=== PATIENT | female | born 1945 | race Caucasian/White ===

== ENCOUNTER 2018-02-24 09:06 | Emergency (ER) | payer MEDICARE, OTHER ==
--- NOTE | 2018-02-24 09:38 | ER Document Report ---
ED Eye Complaint - General Chief Complaint: Eye Problem Stated Complaint: EYE PROBLEM Time Seen by Provider: 02/24/18 09:35 Notes: Patient says that she is seeing "webs", floaters, and light flashes in her eyes. Patient began to have the symptoms last night while driving. She went back home and the symptoms continued. She says the webs are located in both eyes and the light flashes are just in her right eye. She has never had these problems before. Denies any eye pain. Has a history of cataracts and sees Dr. Yohana Tapia, local simulation technician. TRAVEL OUTSIDE OF THE [place] IN LAST 30 DAYS: No - Related Data Allergies/Adverse Reactions: Sulfa (Sulfonamide Antibiotics) Allergy (Verified 02/24/18 09:07) IVP DYE Allergy (Uncoded 02/24/18 09:07) Past Medical History - Social History Smoking Status: Never Smoker Frequency of alcohol use: None Drug Abuse: None Family History: Reviewed & Not Pertinent Patient has suicidal ideation: No Patient has homicidal ideation: No Renal/ Medical History: Denies: Hx Peritoneal Dialysis Past Surgical History: Reports: Hx Appendectomy Physical Exam - Vital signs Vitals: Temp Pulse Resp BP Pulse Ox 97.4 F 73 16 158/85 H 96 02/24/18 09:11 02/24/18 09:11 02/24/18 09:11 02/24/18 09:11 02/24/18 09:11 Course - Vital Signs Vital signs: Temp Pulse Resp BP Pulse Ox 97.7 F 73 19 160/88 H 94 02/24/18 11:54 02/24/18 09:11 02/24/18 11:55 02/24/18 11:55 02/24/18 11:55 - Laboratory Result Diagrams: 02/24/18 10:42 02/24/18 10:42 Discharge - Discharge Clinical Impression: Eye abnormalities Condition: Good Disposition: HOME, SELF-CARE Additional Instructions: Come back immediately with any worsening eye complaints, blurry vision, headache , weakness or numbness, increased flashes of light, or any other acute problems. The simulation technician office states that they would like to see you tomorrow morning at 8 AM.
--- NOTE | 2018-02-24 10:06 | RADIOLOGY REPORT (SQ) ---
EXAM DESCRIPTION: CT HEAD WITHOUT COMPLETED DATE/TIME: 02/24/2018 9:56 am REASON FOR STUDY: Visual changes, flashing lights, webs. COMPARISON: None. TECHNIQUE: Axial images acquired through the brain without intravenous contrast. Images reviewed wi th bone, brain and subdural windows. Additional sagittal and coronal reconstructions were generated. Images stored on PACS. All CT scanners at this facility use dose modulation, iterative reconstruction, and/or weight based d osing when appropriate to reduce radiation dose to as low as reasonably achievable (ALARA). [facility]: Dose Right [facility]: CareDose [facility]: Dose Right [facility]: Teradose 4D [facility]: Active DSP RADIATION DOSE: CT Rad equipment meets quality standard of care and radiation dose reduction techniq ues were employed. CTDIvol: 53.2 mGy. DLP: 911 mGy-cm. mGy. LIMITATIONS: None. FINDINGS: VENTRICLES: Normal size and contour. CEREBRUM: No masses. No hemorrhage. No midline shift. No evidence for acute infarction. Normal gra y/white matter differentiation. No areas of low density in the white matter. CEREBELLUM: No masses. No hemorrhage. No alteration of density. No evidence for acute infarction. EXTRAAXIAL SPACES: No fluid collections. No masses. ORBITS AND GLOBE: No intra- or extraconal masses. Normal contour of globe without masses. CALVARIUM: No fracture. PARANASAL SINUSES: No fluid or mucosal thickening. SOFT TISSUES: No mass or hematoma. OTHER: No other significant finding. IMPRESSION: NORMAL BRAIN CT WITHOUT CONTRAST. EVIDENCE OF ACUTE STROKE: NO. COMMENT: Quality ID # [id number]: Final reports with documentation of one or more dose reduction techniques (e.g., Automated exposure control, adjustment of the mA and/or kV according to patient size, use of iterative reconstruction technique) TECHNICAL DOCUMENTATION: JOB ID: [id number] [employer]- All Rights Reserved Reading location - IP/workstation name: [email or web address]
--- NOTE | 2018-02-24 10:30 | ER Document Report ---
ED Eye Complaint - General Chief Complaint: Eye Problem Stated Complaint: EYE PROBLEM Time Seen by Provider: 02/24/18 09:35 Information source: Patient Notes: Patient is a 72-year-old female who presents today stating yesterday she started to have some flashes of light to the right corner of her eye. She denies any headache, weakness or numbness, neck pain, blurry or double vision. Patient states that it has improved currently but she still had some mild flashes this morning. TRAVEL OUTSIDE OF THE [place] IN LAST 30 DAYS: No - HPI Onset: Other - See above Eye location: Right Injury: No Occurred at: Outdoors Quality of pain: No pain Severity: Mild Pain Level: Denies Safety glasses worn: No Contact lenses worn: No Associated symptoms: Other - See above - Related Data Allergies/Adverse Reactions: Sulfa (Sulfonamide Antibiotics) Allergy (Verified 02/24/18 09:07) IVP DYE Allergy (Uncoded 02/24/18 09:07) Past Medical History - General Information source: Patient - Social History Smoking Status: Never Smoker Cigarette use (# per day): No Chew tobacco use (# tins/day): No Smoking Education Provided: No Frequency of alcohol use: None Drug Abuse: None Family History: Reviewed & Not Pertinent Patient has suicidal ideation: No Patient has homicidal ideation: No Renal/ Medical History: Denies: Hx Peritoneal Dialysis Past Surgical History: Reports: Hx Appendectomy Review of Systems - Review of Systems Constitutional: denies: Fever EENT: denies: Eye discharge, Blurred vision, Double vision, Nose pain, Nose congestion, Nose discharge Cardiovascular: denies: Chest pain, Palpitations Musculoskeletal: denies: Leg swelling Skin: denies: Rash Neurological/Psychological: Other - no slurred speech. denies: Confusion, Weakness, Gait changes, Loss of power, Lost consciousness, Speech impairment, Numbness, Tingling -: Yes All other systems reviewed and negative Physical Exam - Vital signs Vitals: Temp Pulse Resp BP Pulse Ox 97.4 F 73 16 158/85 H 96 02/24/18 09:11 02/24/18 09:11 02/24/18 09:11 02/24/18 09:11 02/24/18 09:11 Notes: Reviewed vital signs and nursing note as charted by RN. CONSTITUTIONAL: Alert and oriented and responds appropriately to questions. Well -appearing; well-nourished HEAD: Normocephalic; atraumatic EYES: PERRL; full painless extraocular range of motion; patient has possibly a very minimal field deficit to the right lower lateral quadrant ENT: Normal nose; no rhinorrhea; moist mucous membranes; pharynx without lesions noted NECK: Supple without meningismus; non-tender; no carotid bruit; no cervical lymphadenopathy, no masses CARD: Regular rate and rhythm; no murmurs RESP: Normal chest excursion without splinting or tachypnea; breath sounds clear and equal bilaterally BACK: The back appears normal and is non-tender to palpation, there is no CVA tenderness EXT: Normal ROM in all joints; non-tender to palpation; no cyanosis, no effusions, no edema SKIN: No acute lesions noted NEURO: CN II through XII are intact. Patient has 5 out of 5 bilateral upper and lower extremity strength with sensation intact and cerebellar functioning normal PSYCH: The patient's mood and manner are appropriate. Grooming and personal hygiene are appropriate. - HEENT Visual acuity- Right eye: 20/25 Visual acuity- Left eye: 20/50 Visual acuity- Both eyes: 20/25 Corrective lenses worn: Yes - eyeglasses worn. Pt has cataract in left eye Course - Re-evaluation Re-evalutation: 02/24/18 10:28 Given the above history and physical examination I will order a CT scan of the head, EKG, and perform a visual acuity scan. Imaging and labs with an EKG is recorded. No change in examination. I have called and spoken to the food production manager Dr. Weiss. I have explained the full history and physical examination. Patient sees Dr. Garnica at this practice. He does not believe any acute intervention is required at this time. He has taken the patient's name and phone number and states that they will expedite follow-up tomorrow morning in the office. He has explained to have the patient return immediately with any worsening symptomatology. Patient and are pleased with this plan. Patient still has no focal neurological deficits. 02/24/18 11:29 No change in exam. Labs as recorded. Troponin is pending. CT scan of the head shows no acute abnormalities. - Vital Signs Vital signs: Temp Pulse Resp BP Pulse Ox 97.4 F 73 17 174/89 H 97 02/24/18 09:11 02/24/18 09:11 02/24/18 10:36 02/24/18 10:36 02/24/18 10:36 - Laboratory Result Diagrams: 02/24/18 10:42 02/24/18 10:42 Discharge - Discharge Clinical Impression: Eye abnormalities Condition: Good Disposition: HOME, SELF-CARE Additional Instructions: Come back immediately with any worsening eye complaints, blurry vision, headache , weakness or numbness, increased flashes of light, or any other acute problems. The food production manager office states that they would like to see you tomorrow morning at 8 AM.
[2018-02-24 11:07] LABS: ABSOLUTE EOSINOPHILS # (AUTO) 0.1 10^3/uL (0.0-0.6); ABSOLUTE LYMPHOCYTES (AUTO) 1.4 10^3/uL (0.5-4.7); ABSOLUTE MONOCYTES (AUTO) 0.6 10^3/uL (0.1-1.4); ABSOLUTE NEUT (AUTO) 3.7 10^3/uL (1.7-8.2); BASOPHILS % (AUTO) 0.3 % (0-2); EOSINOPHILS % (AUTO) 1.4 % (0-6); HEMOGLOBIN 13.7 g/dL (12.0-15.5); LYMPHOCYTES % (AUTO) 24.2 % (13-45); MEAN CORPUSCULAR HEMOGLOBIN 30.8 pg (27.0-33.4); MEAN CORPUSCULAR HGB CONC 33.4 g/dL (32.0-36.0); MEAN CORPUSCULAR VOLUME 92 fl (80-97); MONOCYTES % (AUTO) 10.1 % (3-13); PLATELET COUNT 240 10^3/uL (150-450); RED BLOOD COUNT 4.44 10^6/uL (3.72-5.28); TOTAL CELLS COUNTED % (AUTO) 100 %; WHITE BLOOD COUNT 5.8 10^3/uL (4.0-10.5)
[2018-02-24 11:24] LABS: ANION GAP 10 (5-19); BLOOD UREA NITROGEN 19 mg/dL (7-20); CALCIUM 9.5 mg/dL (8.4-10.2); CARBON DIOXIDE 28 mmol/L (22-30); CHLORIDE 105 mmol/L (98-107); GLUCOSE 98 mg/dL (75-110); POTASSIUM 4.5 mmol/L (3.6-5.0); SODIUM 143.4 mmol/L (137-145)
[2018-02-24 12:01] VITALS: BP 160/88
== END 2018-02-24 12:01 | disposition home or self-care (01) ==
LOC: ER 09:06
DX: H57.9 Unspecified disorder of eye and adnexa (principal); H53.19 Other subjective visual disturbances
CPT/HCPCS: 36415; 70450; 80048; 84484; 85025; 99284

== ENCOUNTER 2018-12-17 06:47 | Day surgery (SDC) | payer MEDICARE, OTHER ==
[~2018-12-17 06:47] MED LIST: KETOROLAC TROMETHAMINE 0.45% 4 DROP/0.4 ML DROPERETTE OS PRN
[2018-12-17] MEDS: TETRACAINE HCL 0.5% OPH SOLN 0.6 ML DROPERETTE OS PRN ×2 (07:08→07:35)
[2018-12-17] MEDS: CYCLOPENTOLATE 0.2%/PHENYLEPHRINE 1% OPH SOLN 2 ML OS PRN ×3 (07:09→07:33)
[2018-12-17] MEDS: TROPICAMIDE 1% OPH SOLN 3 ML OS PRN ×3 (07:09→07:33)
[2018-12-17] MEDS: BESIFLOXACIN HCL 0.6% OPH SUSP 5 ML BOTTLE OS PRN ×5 (07:10→08:35)
[2018-12-17] MEDS: BUPIVACAINE HCL 0.75% INJ/PF (7.5 MG/1 ML) 10 ML SDV OS PRN ×2 (07:45→08:02)
[2018-12-17] MEDS: LIDOCAINE 4% INJ/PF (40 MG/ML) 5 ML AMPUL OS PRN ×2 (07:45→08:02)
[2018-12-17] MEDS: LIDOCAINE 1% INJ-PF (10 MG/ML) 30 ML SDV ONE ×2 (07:45→08:15)
[2018-12-17] MEDS: EPINEPHRINE INJ/PF 1 MG/1 ML AMPULE ONE ×2 (07:46→08:15)
[2018-12-17] MEDS: DORZOLAMIDE HCL 2%/TIMOLOL MALEAT 0.5% OPH SOLN 10 ML OS PRN ×3 (07:46→08:35)
[2018-12-17] MEDS: CHONDR SU A NA/HYALUR INTRAOC KIT (SURGICARE) ONE ×2 (07:46→08:15)
[2018-12-17] MEDS ORDERED: MIDAZOLAM 2 MG/2 ML INJ ONE (07:51)
--- NOTE | 2018-12-17 08:57 | [facility] DISCHARGE SUMMARY E ---
[facility] Discharge Summary NAME: MEGHAN TIRADO AGE: 73Y ADMITTED: 12/17/2018 DISCHARGED: 12/17/2018 FINAL DIAGNOSIS: Cataract, left eye. HOSPITAL COURSE: The patient is a 73-year-old lady who underwent uneventful cataract extraction with Symfony intraocular lens implant, left eye. She will be discharged to home. She was instructed to resume preoperative medications; to take Tylenol as needed for discomfort; to keep her eye shielded; to use Pred Forte, Ketorolac, and Vigamox at 3 p.m. and 8 p.m.; and to follow up in my office in 1 day. DICTATING PHYSICIAN: KLARISSA MORRISSEY M.D. [id number] Y#: [id number] ID: [id number] JOB#: [id number] ACCT: [id number] cc:KLARISSA MORRISSEY M.D. >
--- NOTE | 2018-12-17 08:57 | [facility] OPERATIVE REPORT E ---
[facility] Operative Report NAME: MEGHNA TIRADO AGE: 73Y DATE OF SURGERY: 12/17/2018 ROOM: PREOPERATIVE DIAGNOSIS: Cataract, left eye. POSTOPERATIVE DIAGNOSIS: Cataract, left eye. PROCEDURE PERFORMED: Phacoemulsification with Symfony intraocular lens, left eye. SURGEON: KLARISSA MORRISSEY M.D. ANESTHESIA: Topical with MAC. PROCEDURE: The patient was brought to the operating room and placed on the operative table. Following tetracaine drops, topical anesthesia was administered. This consisted of instrument wipe pledgets soaked in a solution of 4% Xylocaine mixed with 0.75% Marcaine in a 1:2 ratio. A 2 x 1 cm pledget was placed in the superior fornix. A 1 x 1 cm pledget was placed in the inferior fornix. The eye was patched shut for 5 minutes. The patch was removed. The eye was sterilely prepped and draped in the usual manner. Lid speculum was placed in the eye. The pledgets were removed and 4-0 black silk sutures were placed around the superior and the inferior rectus muscles to be used as traction. A conjunctival peritomy was made at the 10 o'clock position. Hemostasis was obtained with bipolar cautery. A clear corneal temporal incision was created using a crescent knife and dissected anteriorly towards the cornea. A sharp point blade was used to create a paracentesis site at the 2 o'clock position. A 2.4 mm keratome was used to enter the anterior chamber through the groove. Viscoelastic was injected into the anterior chamber. An anterior capsulotomy was performed using Utrata forceps in a capsulorrhexis fashion. Hydrodissection and hydrodelineation were performed. Phacoemulsification was performed in [id number] technique. Total phaco time was 6.36 CDE. Following this, the I/A unit was used to remove residual cortex. Viscoelastic was injected into the capsular bag. Intraocular lens model ZXR00, 23.0 diopters, serial number [id number], was placed in the capsular bag. The I/A unit was used to remove residual viscoelastic. The wound was seen to be watertight under high and low pressure, and no sutures were placed. The intraocular lens was well centered. The pressure was adjusted in the eye to normal pressure. The 4-0 black silk sutures and lid speculum were removed. The eye was shielded after Besivance drops were placed. The patient tolerated the procedure well and was sent to the recovery room in good condition. DICTATING PHYSICIAN: KLARISSA MORRISSEY M.D. [id number] PHY#: [id number] ID: [id number] JOB#: [id number] ACCT: [id number] cc:KLARISSA MORRISSEY M.D. >
== END 2018-12-17 09:18 | disposition home or self-care (01) ==
LOC: SC 06:47
PROVIDERS: ATTEND Ophthalmology
DX: H25.813 Combined forms of age-related cataract, bilateral (principal); H04.123 Dry eye syndrome of bilateral lacrimal glands; E78.00 Pure hypercholesterolemia, unspecified; I10 Essential (primary) hypertension; Z88.2 Allergy status to sulfonamides
CPT/HCPCS: 66984; V2788; J2250; J3490 ×4; A9270; J0171; 142